=== PATIENT | male | born 1970 | race Two or more races ===

== ENCOUNTER 2023-08-08 15:13 | Inpatient (IN) | payer MEDICAID, OTHER ==
[~2023-08-08] VITALS: Ht 180.3 cm; Wt 76.2 kg
[~2023-08-08 15:13] MED LIST: BENZ1TAB84 PO; OLAN10TA74 PO; TRAZ150T80 PO
[2023-08-08 17:11] LABS: BASOPHILS % (AUTO) 0.7 % (0.0-2.0); EOSINOPHILS % (AUTO) 1.2 % (1.0-6.0); HEMATOCRIT 39.4 % (41-53); HEMOGLOBIN 12.9 g/dL (13.5-17.5); LYMPHOCYTES % (AUTO) 23.7 % (22.0-44.0); MEAN CORPUSCULAR HEMOGLOBIN 30.7 pg (26.0-34.0); MEAN CORPUSCULAR HGB CONC 32.8 G/dL (31.0-37.0); MEAN CORPUSCULAR VOLUME 94 fL (80-100); MONOCYTES # (AUTO) 0.3 K/uL (0.1-1.0); MONOCYTES % (AUTO) 6.4 % (2.0-9.0); NEUTROPHILS # (AUTO) 2.9 K/uL (1.8-7.7); PLATELET COUNT (AUTO) 147 K/uL (150-450); RED BLOOD CELL COUNT(AUTO) 4.21 MIL/uL (4.50-5.90); RED CELL DISTRIBUTION WIDTH 13.9 % (11.5-14.5); WHITE BLOOD COUNT (AUTO) 4.3 K/uL (4.5-11.0)
[2023-08-08 17:21] LABS: ANION GAP 6 mmol/L (8-16); CALCIUM, TOTAL 9.6 mg/dL (8.8-10.5); CARBON DIOXIDE 29 mmol/L (22-29); CHLORIDE 103 mmol/L (98-107); CREATININE 0.87 mg/dL (0.60-1.30); GLOMERULAR FILTR. RATE CALC > 60 mL/min (>60); GLUCOSE,RANDOM 102 mg/dL (70-110); POTASSIUM 3.8 mmol/L (3.5-5.1); SODIUM SERUM 138 mmol/L (136-145); UREA NITROGEN, BLOOD 22 mg/dL (7-18)
[2023-08-08 17:27] LABS: ALANINE AMINOTRANSFERASE 35 U/L (12-78); ALBUMIN 3.5 g/dL (3.4-5.0); ALKALINE PHOSPHATASE 56 U/L (46-116); ASPARTATE AMINOTRANSFERASE 26 U/L (15-37); BILIRUBIN,TOTAL 0.4 mg/dL (0.1-1.0); TOTAL PROTEIN, SERUM 6.8 g/dL (6.4-8.2)
[2023-08-08 17:34] LABS: ALCOHOL, BLOOD (SERUM) < 3 mg/dL (0-10)
[2023-08-08 18:38] LABS: COVID AG,FIA SOURCE NASAL SWAB
[2023-08-08 18:48] LABS: ALCOHOL, URINE DRUG SCREEN NEGATIVE (NEGATIVE); AMPHET/METH SCREEN,URINE NEGATIVE (NEGATIVE); BARBITURATE SCREEN, URINE NEGATIVE (NEGATIVE); BENZODIAZEPINES SCREEN,URINE NEGATIVE (NEGATIVE); CANNABINOID SCREEN,URINE NEGATIVE (NEGATIVE); COCAINE SCREEN,URINE NEGATIVE (NEGATIVE); METHADONE SCREEN, URINE NEGATIVE (NEGATIVE); OPIATE SCREEN,URINE NEGATIVE (NEGATIVE); PHENCYCLIDINE SCREEN,URINE NEGATIVE (NEGATIVE)
[2023-08-08 19:15] LABS: SARS-COV2 (COVID) ANTIGEN,FIA Negative (Negative)
[2023-08-08] MEDS ORDERED: LORazepam 2 MG TABLET PO PRN (20:45)
[2023-08-08] MEDS ORDERED: HALOPERIDOL 5 MG TABLET PO PRN (20:45)
[2023-08-08] MEDS ORDERED: ZOLPIDEM TARTRATE 10 MG TABLET PO PRN (20:45)
[2023-08-08] MEDS ORDERED: LORazepam 2 MG TABLET PO ONE (20:45)
[2023-08-09 00:25] VITALS: BP 128/83; PULSE 54; RESP 18; TEMP 97.7
[2023-08-09 00:26] VITALS: O2SAT 100
[2023-08-09 00:52] VITALS: BP 128/83; PULSE 54; RESP 18; TEMP 97.7
[2023-08-09] MEDS ORDERED: INFLUENZA VIRUS VACCINE QVS 2023-24 (6MO+)/PF 60 MCG/0.5 ML SYRINGE IM. ONE (01:00)
[2023-08-09] MEDS ORDERED: DOCUSATE SODIUM 100 MG CAPSULE PO PRN (06:00)
[2023-08-09] MEDS ORDERED: IBUPROFEN 600 MG TABLET PO PRN (06:00)
[2023-08-09] MEDS ORDERED: MAGNESIUM HYDROXIDE SUSPENSION 30 ML UDCUP PO PRN (06:00)
[2023-08-09] MEDS ORDERED: PETROLATUM,WHITE 28 GM JELLY TP PRN (06:00)
[2023-08-09] MEDS ORDERED: MAG HYDROX/ALUMINUM HYD/SIMETH ES 30 ML SUSPENSION UDCUP PO PRN (06:00)
[2023-08-09] MEDS ORDERED: ALBUTEROL SULFATE HFA 90 MCG/PUFF 8 GM INHALER IH PRN (06:00)
[2023-08-09] MEDS ORDERED: BENZOCAINE/MENTHOL LOZENGE PO PRN (06:00)
[2023-08-09] MEDS ORDERED: CloNIDine HCL 0.1 MG TABLET PO PRN (06:00)
[2023-08-09] MEDS ORDERED: ACETAMINOPHEN 325 MG TABLET PO PRN (06:00)
[2023-08-09] MEDS ORDERED: OMEPRAZOLE 20 MG CAPSULE PO PRN (06:00)
[2023-08-09] MEDS ORDERED: BACITRACIN 28 GM OINTMENT TP PRN (06:00)
[2023-08-09] MEDS ORDERED: LOPERAMIDE HCL 2 MG CAPSULE PO PRN (06:00)
[2023-08-09] MEDS ORDERED: ONDANSETRON HCL 4 MG TABLET PO PRN (06:00)
[2023-08-09 08:15] VITALS: BP 120/83; PULSE 61; RESP 18; TEMP 97.6; O2SAT 100
[2023-08-09] MEDS: BENZTROPINE MESYLATE 1 MG TABLET PO SCH (17:08)
[2023-08-09 20:16] VITALS: BP 141/98; PULSE 71; RESP 20; TEMP 98.4; O2SAT 99
[2023-08-09] MEDS: TraZODone HCL 150 MG TABLET PO SCH (20:17)
[2023-08-09] MEDS: OLANZapine 7.5 MG TABLET PO SCH (20:17)
[2023-08-10] MEDS: BENZTROPINE MESYLATE 1 MG TABLET PO SCH ×2 (08:33→16:22)
[2023-08-10 08:41] VITALS: BP 128/98; PULSE 80; RESP 19; TEMP 98; O2SAT 99
[2023-08-10 20:06] VITALS: BP 131/88; PULSE 87; RESP 18; TEMP 98.4; O2SAT 96
[2023-08-10] MEDS: OLANZapine 7.5 MG TABLET PO SCH (20:34)
[2023-08-10] MEDS: TraZODone HCL 150 MG TABLET PO SCH (20:34)
[2023-08-11] MEDS: BENZTROPINE MESYLATE 1 MG TABLET PO SCH ×2 (08:31→16:36)
[2023-08-11 11:59] VITALS: BP 129/90; PULSE 83; RESP 18; TEMP 97.7; O2SAT 98
[2023-08-11 20:14] VITALS: BP 131/86; PULSE 71; RESP 20; TEMP 98.2; O2SAT 99
[2023-08-11] MEDS: OLANZapine 7.5 MG TABLET PO SCH (20:15)
[2023-08-11] MEDS: TraZODone HCL 150 MG TABLET PO SCH (20:15)
[2023-08-12 08:27] VITALS: BP 128/84; PULSE 75; RESP 18; TEMP 97.5; O2SAT 98
[2023-08-12] MEDS: BENZTROPINE MESYLATE 1 MG TABLET PO SCH ×2 (08:54→16:35)
[2023-08-12 20:04] VITALS: BP 142/84; PULSE 67; RESP 18; TEMP 97.8; O2SAT 98
[2023-08-12] MEDS: TraZODone HCL 150 MG TABLET PO SCH (20:09)
[2023-08-12] MEDS: OLANZapine 7.5 MG TABLET PO SCH (20:09)
[2023-08-13 08:22] VITALS: BP 133/89; PULSE 81; RESP 18; TEMP 97.9; O2SAT 100
[2023-08-13] MEDS: BENZTROPINE MESYLATE 1 MG TABLET PO SCH ×2 (09:50→17:15)
[2023-08-13 20:24] VITALS: BP 136/72; PULSE 105; RESP 18; TEMP 98; O2SAT 100
[2023-08-13] MEDS ORDERED: OLANZapine 10 MG TABLET PO SCH (21:00)
[2023-08-13] MEDS ORDERED: OLAN10TA74 PO (21:05)
[2023-08-13] MEDS: TraZODone HCL 150 MG TABLET PO SCH (21:45)
[2023-08-14] MEDS: BENZTROPINE MESYLATE 1 MG TABLET PO SCH (08:03)
[2023-08-14 08:46] VITALS: BP 131/75; PULSE 88; RESP 17; TEMP 97.7; O2SAT 100
[2023-08-14] MEDS ORDERED: OLAN10TA74 PO (11:58)
[2023-08-14] MEDS ORDERED: TRAZ150T80 PO (11:59)
== END 2023-08-14 13:40 | disposition home or self-care (01) | DRG 750 ==
LOC: EMS 15:17 → B2S 22:18
PROVIDERS: ADMIT Psychiatry & Neurology Psychiatry; ATTEND Psychiatry & Neurology Psychiatry
DX: F20.9 Schizophrenia, unspecified (principal); F41.9 Anxiety disorder, unspecified; G47.00 Insomnia, unspecified; K59.00 Constipation, unspecified; Z20.822 Contact with and (suspected) exposure to COVID-19
CPT/HCPCS: 80053; 80307; 85025; 99285; G0480

== ENCOUNTER 2024-07-20 15:38 | Inpatient (IN) | payer MEDICAID ==
[~2024-07-20] VITALS: Ht 172.7 cm; Wt 83.5 kg
[~2024-07-20 15:38] MED LIST changes: +BENZ-247 PO; -BENZ1TAB84 PO
[2024-07-20] MEDS ORDERED: ZOLPIDEM TARTRATE 10 MG TABLET PO PRN (17:30)
[2024-07-20] MEDS ORDERED: HALOPERIDOL 5 MG TABLET PO PRN (17:30)
[2024-07-20] MEDS ORDERED: LORazepam 2 MG TABLET PO PRN (17:30)
[2024-07-20 17:36] LABS: GLUCOMETER DEV NAME(LOC) POC.BV; POC SARS-COV2 AG, FIA NEGATIVE (NEGATIVE)
[2024-07-20 18:01] VITALS: BP 127/69; PULSE 82; RESP 20; O2SAT 98
[2024-07-20 20:00] VITALS: BP 121/82; PULSE 74; RESP 18; TEMP 98; O2SAT 96
[2024-07-20] MEDS: INFLUENZA VIRUS VACCINE TVS (6MO+) 2024-25/PF 45 MCG/0.5 ML SYRINGE IM. ONE (22:46)
[2024-07-21] MEDS ORDERED: IBUPROFEN 600 MG TABLET PO PRN (08:15)
[2024-07-21] MEDS ORDERED: ALBUTEROL SULFATE HFA 90 MCG/PUFF 8 GM INHALER IH PRN (08:15)
[2024-07-21] MEDS ORDERED: PETROLATUM,WHITE 28 GM JELLY TP PRN (08:15)
[2024-07-21] MEDS ORDERED: OMEPRAZOLE 20 MG CAPSULE PO PRN (08:15)
[2024-07-21] MEDS ORDERED: LOPERAMIDE HCL 2 MG CAPSULE PO PRN (08:15)
[2024-07-21] MEDS ORDERED: MAG HYDROX/ALUMINUM HYD/SIMETH ES 30 ML SUSPENSION UDCUP PO PRN (08:15)
[2024-07-21] MEDS ORDERED: BENZOCAINE/MENTHOL LOZENGE PO PRN (08:15)
[2024-07-21] MEDS ORDERED: ACETAMINOPHEN 325 MG TABLET PO PRN (08:15)
[2024-07-21] MEDS ORDERED: BACITRACIN 28 GM OINTMENT TP PRN (08:15)
[2024-07-21] MEDS ORDERED: ONDANSETRON 4 MG TABLET PO PRN (08:15)
[2024-07-21 08:23] LABS: BASOPHILS % (AUTO) 0.5 % (0.0-2.0); EOSINOPHILS % (AUTO) 2.7 % (1.0-6.0); LYMPHOCYTES # (AUTO) 0.9 K/uL (1.0-4.8); LYMPHOCYTES % (AUTO) 39.9 % (22.0-44.0); MEAN CORPUSCULAR HEMOGLOBIN 30.9 pg (26.0-34.0); MEAN CORPUSCULAR HGB CONC 33.4 G/dL (31.0-37.0); MEAN CORPUSCULAR VOLUME 92 fL (80-100); MONOCYTES # (AUTO) 0.2 K/uL (0.1-1.0); MONOCYTES % (AUTO) 7.7 % (2.0-9.0); NEUTROPHILS # (AUTO) 1.1 K/uL (1.8-7.7); NEUTROPHILS % (AUTO) 49.2 % (40.0-70.0); PLATELET COUNT (AUTO) 132 K/uL (150-450); RED BLOOD CELL COUNT(AUTO) 4.54 MIL/uL (4.50-5.90); RED CELL DISTRIBUTION WIDTH 12.9 % (11.5-14.5); WHITE BLOOD COUNT (AUTO) 2.3 K/uL (4.5-11.0)
[2024-07-21 08:34] VITALS: BP 134/90; PULSE 93; RESP 16; TEMP 97.4; O2SAT 98
[2024-07-21 08:34] LABS: HEMOGLOBIN A1C 5.4 % (3.8-5.6)
[2024-07-21 08:44] LABS: ALANINE AMINOTRANSFERASE 20 U/L (12-78); ALBUMIN 3.5 g/dL (3.4-5.0); ALKALINE PHOSPHATASE 51 U/L (46-116); ANION GAP 10 mmol/L (8-16); ASPARTATE AMINOTRANSFERASE 21 U/L (15-37); BILIRUBIN,TOTAL 0.8 mg/dL (0.1-1.0); CALCIUM, TOTAL 9.3 mg/dL (8.8-10.5); CARBON DIOXIDE 26 mmol/L (22-29); CHLORIDE 105 mmol/L (98-107); CHOLESTEROL 176 mg/dL (131-200); CREATININE 0.91 mg/dL (0.60-1.30); GLOMERULAR FILTR. RATE CALC > 60 mL/min (>60); GLUCOSE,RANDOM 90 mg/dL (70-110); HDL CHOLESTEROL 51 mg/dL (40-60); POTASSIUM 4.5 mmol/L (3.5-5.1); SODIUM SERUM 141 mmol/L (136-145); TRIGLYCERIDES 38 mg/dL (15-150); UREA NITROGEN, BLOOD 20 mg/dL (7-18)
[2024-07-21 08:45] LABS: CHOL/HDL RATIO 3.5 (4.2-7.3); FREE T4 (FREE THYROXINE) 1.45 ng/dL (0.76-1.46); LDL CHOL (CALC.) 117 mg/dL (0-130); THYROID STIMULATING HORMONE 2.78 uIU/mL (0.36-3.74)
[2024-07-21] MEDS: MAGNESIUM HYDROXIDE SUSPENSION 30 ML UDCUP PO PRN (14:38)
[2024-07-21] MEDS: OLANZapine 7.5 MG TABLET PO SCH (20:16)
[2024-07-21 20:50] VITALS: BP 118/66; PULSE 64; RESP 17; TEMP 97.1; O2SAT 99
[2024-07-22] MEDS: DOCUSATE SODIUM 100 MG CAPSULE PO PRN (07:44)
[2024-07-22 08:26] VITALS: BP 141/76; PULSE 91; RESP 17; TEMP 97.4; O2SAT 100
[2024-07-22 20:05] VITALS: BP 127/87; PULSE 81; RESP 17; TEMP 97.9; O2SAT 98
[2024-07-22] MEDS: BISACODYL 10 MG RECTAL RECTAL SUPPOSITORY PR ONE (21:33)
[2024-07-23 09:01] VITALS: BP 114/80; PULSE 92; RESP 18; TEMP 98; O2SAT 100
[2024-07-23] MEDS: DOCUSATE SODIUM 250 MG CAPSULE PO SCH (09:22)
[2024-07-23] MEDS: POLYETHYLENE GLYCOL 3350 17 GM PACKET PO SCH (09:22)
[2024-07-23 09:25] LABS: APPEARANCE,URINE CLEAR (CLEAR); BILIRUBIN,URINE NEGATIVE (NEGATIVE); COLOR,URINE YELLOW (YELLOW); GLUCOSE, URINE (UA) NEGATIVE (NEGATIVE); KETONES,URINE TRACE mg/dL (NEGATIVE); LEUKOCYTE ESTERASE ,URINE NEGATIVE (NEGATIVE); NITRATE,URINE NEGATIVE (NEGATIVE); OCCULT BLOOD,URINE NEGATIVE (NEGATIVE); PH,URINE 6.5 (5.0-8.0); PH,URINE DRUG SCREEN 6.5 (5.0-8.0); PROTEIN,URINE NEGATIVE (NEGATIVE); SPECIFIC GRAVITIY, URINE 1.018 (1.003-1.030); UROBILINOGEN,URINE <=1.0 mg/dL (<=1.0)
[2024-07-23 09:29] LABS: ALCOHOL, URINE DRUG SCREEN NEGATIVE (NEGATIVE); AMPHET/METH SCREEN,URINE NEGATIVE (NEGATIVE); BARBITURATE SCREEN, URINE NEGATIVE (NEGATIVE); BENZODIAZEPINES SCREEN,URINE NEGATIVE (NEGATIVE); CANNABINOID SCREEN,URINE NEGATIVE (NEGATIVE); COCAINE SCREEN,URINE NEGATIVE (NEGATIVE); METHADONE SCREEN, URINE NEGATIVE (NEGATIVE); OPIATE SCREEN,URINE NEGATIVE (NEGATIVE); PHENCYCLIDINE SCREEN,URINE NEGATIVE (NEGATIVE)
[2024-07-23 20:55] VITALS: BP 108/73; PULSE 76; RESP 18; TEMP 97.7; O2SAT 97
[2024-07-24 08:46] VITALS: BP 122/87; PULSE 90; RESP 18; TEMP 98; O2SAT 100
[2024-07-24 21:05] VITALS: BP 117/82; PULSE 81; RESP 18; TEMP 97.9; O2SAT 98
[2024-07-25 09:37] VITALS: BP 115/79; PULSE 70; RESP 18; TEMP 97.9; O2SAT 100
[2024-07-25 20:58] VITALS: BP 144/91; PULSE 83; RESP 17; TEMP 98.2; O2SAT 96
[2024-07-26 10:12] VITALS: BP 109/72; PULSE 95; RESP 17; TEMP 97.7; O2SAT 100
[2024-07-26 18:09] VITALS: BP 180/100
[2024-07-26] MEDS: CloNIDine HCL 0.1 MG TABLET PO PRN (18:10)
[2024-07-26 18:52] VITALS: BP 140/72
[2024-07-26 20:33] VITALS: BP 146/90; PULSE 102; RESP 18; TEMP 97.4; O2SAT 97
[2024-07-27 09:37] VITALS: BP 125/88; PULSE 72; RESP 17; TEMP 97.7; O2SAT 99
[2024-07-27 20:37] VITALS: BP 126/90; PULSE 67; RESP 18; TEMP 98.5; O2SAT 100
[2024-07-28 09:25] VITALS: BP 116/87; PULSE 74; RESP 18; TEMP 97.5; O2SAT 98
[2024-07-28 20:41] VITALS: BP 152/94; PULSE 73; RESP 16; TEMP 98.5; O2SAT 100
[2024-07-29 09:19] VITALS: BP 115/66; PULSE 79; RESP 16; TEMP 97; O2SAT 95
[2024-07-29] MEDS ORDERED: OLAN7.5T22 PO (11:27)
[2024-07-29] MEDS ORDERED: POLY17PO47 PO (12:24)
[2024-07-29] MEDS ORDERED: DOCU-412 PO (12:24)
== END 2024-07-29 16:00 | disposition home or self-care (01) | DRG 750 ==
LOC: B2S 17:26
PROVIDERS: ADMIT Psychiatry & Neurology Psychiatry; ATTEND Psychiatry & Neurology Psychiatry
DX: F20.9 Schizophrenia, unspecified (principal); F41.9 Anxiety disorder, unspecified; G47.00 Insomnia, unspecified; K59.00 Constipation, unspecified; M19.90 Unspecified osteoarthritis, unspecified site; Z20.822 Contact with and (suspected) exposure to COVID-19
CPT/HCPCS: 74019; 80053; 80061; 80307; 81003; 83036; 84439; 84443; 85025